=== PATIENT | female | born 1950 | race Caucasian/White ===

== ENCOUNTER 2018-01-24 19:42 | Emergency (ER) | payer OTHER ==
[~2018-01-24] VITALS: Ht 170.2 cm; Wt 63.5 kg
[~2018-01-24 19:42] MED LIST: CRESTOR5 MG
[2018-01-24] MEDS ORDERED: CRESTOR20 MG (20:48)
== END 2018-01-24 21:58 | disposition home or self-care (01) ==
LOC: ER 19:42
DX: S91.301A Unspecified open wound, right foot, initial encounter (principal); W31.89XA Contact with other specified machinery, initial encounter; Y93.89 Activity, other specified; Y92.89 Other specified places as the place of occurrence of the external cause; Y99.8 Other external cause status

== ENCOUNTER 2020-07-28 14:49 | Outpatient (CLI) | payer OTHER ==
[~2020-07-28 14:49] MED LIST changes: +CRESTOR20 MG
== END 2020-07-28 15:05 | disposition home or self-care (01) ==
LOC: RAD 14:49
PROVIDERS: ATTEND General Practice
DX: M54.5 Low back pain (principal)

== ENCOUNTER 2022-07-15 09:33 | Emergency (ER) | payer OTHER ==
[~2022-07-15] VITALS: Ht 170.2 cm; Wt 62.6 kg
== END 2022-07-15 11:53 | disposition home or self-care (01) ==
LOC: ER 09:33
DX: N39.0 Urinary tract infection, site not specified (principal); Z88.0 Allergy status to penicillin